=== PATIENT | male | born 1980 | race American Indian/Alaskan Native ===

== ENCOUNTER 2016-09-29 02:37 | Emergency (ER) | payer MEDICAID ==
[2016-09-29 02:43] VITALS: BP 125/68; PULSE 77; RESP 18; TEMP 99.1; O2SAT 100
[2016-09-29] MEDS ORDERED: Sodium Chloride 0.9% 1,000 ML IV STA (03:50)
--- NOTE | 2016-09-29 04:33 | ED PDOC ---
HPI: Abdomen Time Seen by Provider: 09/29/16 03:22 Chief Complaint (Nursing): Abdominal Pain Chief Complaint (Provider): abdominal pain History Per: Patient History/Exam Limitations: no limitations Associated Symptoms: Nausea, Back Pain. denies: Fever, Chills, Vomiting, Diarrhea, Loss Of Appetite, Chest Pain, Constipation, Urinary Symptoms Additional Complaint(s): 36yo M homeless in ED for 3d of left flank pain with radiation to left testicle with some nasuea no vomiting no dysruia or hematuira. Past Medical History Reviewed: Historical Data, Nursing Documentation, Vital Signs Vital Signs: Last Vital Signs Temp 99.1 F 09/29/16 02:38 Pulse 77 09/29/16 02:38 Resp 18 09/29/16 02:38 BP 125/68 09/29/16 02:38 Pulse Ox 100 09/29/16 04:33 - Medical History PMH: Migraine - Family History Family History: States: Unknown Family Hx - Immunization History Hx Tetanus Toxoid Vaccination: No Hx Influenza Vaccination: No Hx Pneumococcal Vaccination: No - Home Medications Home Medications: Ambulatory Orders Medication Instructions Recorded Ibuprofen 600 mg PO Q6 PRN #20 tablet 11/15/15 traMADol [Ultram] 50 mg PO TID PRN #12 tab 11/15/15 Ciprofloxacin [Cipro] 250 mg PO BID #6 tab 09/29/16 - Allergies Allergies/Adverse Reactions: Allergies Allergy/AdvReac Type Severity Reaction Status Date / Time No Known Allergies Allergy Verified 11/15/15 06:52 Review of Systems ROS Statement: Except As Marked, All Systems Reviewed And Found Negative Gastrointestinal: Positive for: Abdominal Pain Genitourinary Male: Positive for: Scrotal Pain. Negative for: Hematuria, Penile Discharge Musculoskeletal: Positive for: Back Pain Physical Exam - Reviewed Nursing Documentation Reviewed: Yes Vital Signs Reviewed: Yes - Physical Exam Appears: Positive for: Non-toxic, No Acute Distress, Uncomfortable Head Exam: Positive for: ATRAUMATIC, NORMAL INSPECTION, NORMOCEPHALIC Skin: Positive for: Normal Color, Warm, DRY Cardiovascular/Chest: Positive for: Regular Rate, Rhythm Respiratory: Positive for: CNT, Normal Breath Sounds Gastrointestinal/Abdominal: Positive for: Normal Exam, Bowel Sounds, Soft Male Genital Exam: Positive for: normal genitalia Back: Positive for: L CVA Tenderness Extremity: Positive for: Normal ROM Neurologic/Psych: Positive for: Alert, Oriented - ECG O2 Sat by Pulse Oximetry: 100 - Progress ED Course And Treament: will get CT scan r/o renal stone. torodol for pain control Medical Decision Making Medical Decision Making: CT scan: IMPRESSION: The absence of intravenous contrast greatly limits evaluation of the parenchymal organs. The absence of oral contrast limits evaluation of the gastrointestinal tract. The paucity of abdominal fat also contributes to the very limited evaluation on this study. High suspicion for thick walled bladder. Correlate for infection. Within limits of this study no findings to suggest acute diverticulitis. PT more comfortable now in ED. however UA shows UTI-pt will be d.c on cipro 250mg BID x 3d and advised to f.u with pmd Disposition - Clinical Impression Clinical Impression: UTI (urinary tract infection) - Patient ED Disposition Is Patient to be Admitted: No Counseled Patient/Family Regarding: Studies Performed, Diagnosis, Need For Followup, Rx Given - Disposition Referrals: [facility] [Outside] Disposition: Routine/Home Disposition Time: 05:45 Condition: STABLE Prescriptions: Ciprofloxacin [Cipro] 250 mg PO BID #6 tab Instructions: Urinary Tract Infection in Men (ED)
[2016-09-29 04:58] LABS: RBC URINE 43 /hpf (0-3); URINE BACTERIA RARE (<OCC); URINE BILIRUBIN NEGATIVE (NEGATIVE); URINE BLOOD MODERATE (NEGATIVE); URINE COLOR AMBER (YELLOW); URINE GLUCOSE (UA) NEG (Normal); URINE KETONE NEGATIVE (NEGATIVE); URINE LEUKOCYTE ESTERASE SMALL Leu/uL (Negative); URINE PROTEIN >=500 mg/dL (NEGATIVE); WBC URINE 53 /hpf (0-5)
--- NOTE | 2016-09-29 05:38 | CT ---
EXAM: CT Abdomen and Pelvis Without Intravenous Contrast CLINICAL HISTORY: 36 years old, male; Pain; Abdominal pain; Flank; Left; Additional info: Left flank pain TECHNIQUE: Axial computed tomography images of the abdomen and pelvis without intravenous contrast. This CT exam was performed using one or more of the following dose reduction techniques: automated exposure control, adjustment of the mA and/or kV according to patient size, and/or use of iterative reconstruction technique. Coronal and sagittal reformatted images were created and reviewed. EXAM DATE/TIME: Exam ordered 09/29/2016 3:50 AM COMPARISON: No relevant prior studies available. FINDINGS: Lower thorax: The incompletely imaged heart is shifted to the right, this finding is not completely evaluated on this study. Abdominal situs appears normal. Lung bases with dependent atelectatic changes. There is a small hiatus hernia. ABDOMEN: Liver: The liver is heterogeneous. Clinical and laboratory correlation. Gallbladder and bile ducts: Subsided gallstone noted in the dependent gallbladder. No ductal dilation. Pancreas: Very limited evaluation, the duct cannot be evaluated. Spleen: Unremarkable. No splenomegaly. Adrenals: Unremarkable. No mass. Kidneys and ureters: There is mildly increased attenuation of the renal medullary bilaterally, this can be a normal variant but could represent early nephrocalcinosis, laboratory correlation recommended. No hydronephrosis. Stomach and bowel: No anterior abdominal hernias containing bowel. Noting very limited evaluation, no findings to suggest acute bowel pathology. No obstruction. No mucosal thickening. Appendix: The appendix is visualized series 3 image 102 and adjacent, appendicitis is not favored. PELVIS: Bladder: Although the bladder is collapsed which does limit evaluation of the wall, as seen in sagittal image 67 and adjacent it is favored that the bladder is thick walled which is a sign of infection or other chronic bladder pathology. No stones. Reproductive: Favor that the prostate is prominent, suggest correlation for infection. ABDOMEN and PELVIS: Intraperitoneal space: No free air. No significant fluid collection. Bones/joints: Bony structures with grade one retrolisthesis L5-S1 and loss of disc height at this level. No acute fractures. No dislocation. Soft tissues: Unremarkable. Vasculature: Unremarkable. No abdominal aortic aneurysm. Lymph nodes: Related to absence of contrast and paucity of abdominal evaluation for lymph nodes is limited, no definite pathologically enlarged nodes are seen. IMPRESSION: The absence of intravenous contrast greatly limits evaluation of the parenchymal organs. The absence of oral contrast limits evaluation of the gastrointestinal tract. The paucity of abdominal fat also contributes to the very limited evaluation on this study. High suspicion for thickwalled bladder. Correlate for infection. Within limits of this study no findings to suggest acute diverticulitis. Kidneys as above, laboratory correlation recommended as a next step in evaluation. Gallstone. Other as above. If there has previous imaging please compare on site.
== END 2016-09-29 07:20 | disposition home or self-care (01) ==
LOC: H.ER 02:37
DX: N39.0 Urinary tract infection, site not specified (principal)

== ENCOUNTER 2016-10-11 22:39 | Emergency (ER) | payer MEDICAID ==
[2016-10-11 22:47] VITALS: BP 147/68; PULSE 97; RESP 16; TEMP 98; O2SAT 99
[2016-10-11] MEDS ORDERED: Acetaminophen-Codeine 300/30 mg Tab PO STA (22:48)
[2016-10-11] MEDS ORDERED: Acetaminophen-Codeine 300/30 mg Tab ONE (22:48)
--- NOTE | 2016-10-11 22:56 | ED PDOC ---
HPI: General Adult Time Seen by Provider: 10/11/16 22:51 Chief Complaint (Nursing): ENT Problem Chief Complaint (Provider): ENT Problem History Per: Patient History/Exam Limitations: no limitations Onset/Duration Of Symptoms: Days Current Symptoms Are (Timing): Still Present Additional Complaint(s): 36 y/o male presents to the emergency department with a complaint of left-sided ear pain. Patient states he has a history of ear infection since he was a child. Denies any other complaints. Past Medical History Reviewed: Historical Data, Nursing Documentation, Vital Signs Vital Signs: Last Vital Signs Temp 98.0 F 10/11/16 22:45 Pulse 97 H 10/11/16 22:45 Resp 16 10/11/16 22:45 BP 147/68 10/11/16 22:45 Pulse Ox 99 10/11/16 23:01 - Medical History PMH: Migraine - Family History Family History: States: Unknown Family Hx - Immunization History Hx Tetanus Toxoid Vaccination: No Hx Influenza Vaccination: No Hx Pneumococcal Vaccination: No - Home Medications Home Medications: Ambulatory Orders Medication Instructions Recorded Ibuprofen 600 mg PO Q6 PRN #20 tablet 11/15/15 traMADol [Ultram] 50 mg PO TID PRN #12 tab 11/15/15 Ciprofloxacin [Cipro] 250 mg PO BID #6 tab 09/29/16 Amoxicillin [Amoxil 500 mg Cap] 500 mg PO BID #13 cap 10/11/16 Ibuprofen [Motrin] 600 mg PO Q6 #30 tab 10/11/16 - Allergies Allergies/Adverse Reactions: Allergies Allergy/AdvReac Type Severity Reaction Status Date / Time No Known Allergies Allergy Verified 10/11/16 22:45 Review of Systems ROS Statement: Except As Marked, All Systems Reviewed And Found Negative ENT: Positive for: Ear Pain (Left-sided) Physical Exam - Reviewed Nursing Documentation Reviewed: Yes Vital Signs Reviewed: Yes - Physical Exam Appears: Positive for: Non-toxic, No Acute Distress Head Exam: Positive for: ATRAUMATIC, NORMOCEPHALIC Skin: Positive for: Normal Color, Warm, Dry ENT: Positive for: Other (Positive serum impaction. Ear canal is non swollen. ) Neurologic/Psych: Positive for: Alert, Oriented - ECG O2 Sat by Pulse Oximetry: 99 (RA) Pulse Ox Interpretation: Normal Medical Decision Making Medical Decision Making: Time: 22:51 Initial impression: Ear pain Initial plan: --Tylenol/Codeine 300 mg/30mg --Amoxil 500 mg --Patient states he has a history of ear infection; will treat for ear infection. Scribe Attestation: Documented by Kathie Diaz, acting as a scribe for Antoinette Taylor PA-C. Provider Scribe Attestation: All medical record entries made by the Scribe were at my direction and personally dictated by me. I have reviewed the chart and agree that the record accurately reflects my personal performance of the history, physical exam, medical decision making, and the department course for this patient. I have also personally directed, reviewed, and agree with the discharge instructions and disposition. Disposition - Clinical Impression Clinical Impression: Acute ear pain - Patient ED Disposition Is Patient to be Admitted: No Counseled Patient/Family Regarding: Need For Followup - Disposition Disposition: Routine/Home Disposition Time: 23:36 Condition: STABLE Prescriptions: Amoxicillin [Amoxil 500 mg Cap] 500 mg PO BID #13 cap Ibuprofen [Motrin] 600 mg PO Q6 #30 tab Instructions: Otitis Media (ED)
== END 2016-10-11 23:38 | disposition home or self-care (01) ==
LOC: H.ER 22:39
DX: H66.90 Otitis media, unspecified, unspecified ear (principal)